=== PATIENT | male | born 1985 | race Hispanic/Latino ===

== ENCOUNTER 2025-02-06 11:35 | Emergency (ER) | payer OTHER ==
[~2025-02-06] VITALS: Ht 177.8 cm; Wt 127.0 kg
[2025-02-06 11:47] VITALS: BP 127/67; PULSE 68; RESP 18; TEMP 97.9
--- NOTE | 2025-02-06 11:49 | ERN ---
ED Note History of Present Illness Stated Complaint: LEFT CALF PAIN Chief Complaint: Lower Extremity Pain/Injury Time Seen by MD: 11:42 Dictation: PATIENT IS A 39-YEAR-OLD MALE STATES HE WAS PUSHING A CAR AN HOUR AGO WHEN HE FELT A POP IN PULL TO THE POSTERIOR LEFT CALF. THE PAIN IS GENERALIZED. DECREASED RANGE OF MOTION SECONDARY TO PAIN. SKIN IS INTACT. HE STATES HE TOOK SOMETHING HIS BROTHER GAVE HIM FOR PAIN. [facility] INTACT. Allergies: Coded Allergies: No Known Drug Allergies (Unverified Allergy, Unknown, 02/06/25) Past Medical History RN Note Reviewed/Agreed w/PFSH: Yes Review of System Dictation CONSTITUTIONAL: NEGATIVE EXCEPT FOR HPI HEAD/FACE: NEGATIVE EXCEPT FOR HPI EENT: NEGATIVE EXCEPT FOR HPI RESPIRATORY: NEGATIVE EXCEPT FOR HPI GASTROINTESTINAL/ABDOMINAL: NEGATIVE EXCEPT FOR HPI GENITOURINARY: NEGATIVE EXCEPT FOR HPI MUSCULOSKELETAL: NEGATIVE EXCEPT FOR HPI POSTERIOR LEFT CALF PAIN INTEGUMENTARY: NEGATIVE EXCEPT FOR HPI NEUROLOGICAL/PSYCH: NEGATIVE EXCEPT FOR HPI HEMATOLOGIC/LYMPHATIC: NEGATIVE EXCEPT FOR HPI ALL SYSTEMS NEGATIVE, EXCEPT NOTED ABOVE. 13 POINT REVIEW OF SYSTEMS ASSESSED AND ALL NEGATIVE EXCEPT FOR ABOVE. Initial Vital Sign VS Vital Signs Date Time Temp Pulse Resp B/P (MAP) Pulse Ox O2 Delivery O2 Flow Rate FiO2 02/06/25 11:47 97.9 68 18 127/67 98 Room Air 0 Physical Exam Dictation VITAL SIGNS REVIEWED GENERAL APPEARANCE: ALERT, ORIENTED X 3, NO OBE MODERATE ACUTE DISTRESS, WELL DEVELOPED, NOURISHED. HEAD AND FACE: NON-TRAUMATIC. EYES: PERRL, PINK CONJUNCTIVAS, EYELID NO TRAUMA, ANTERIOR CHAMBER WITH ARCUS SENILIS. EARS: PINNAS INTACT AND NO SIGNS OF TRAUMA OR ERYTHEMA EAR CANALS CLEAR AND NO DISCHARGE TM NO ERYTHEMA NOSE: NO DISCHARGE, NO BLEEDING. OROPHARYNX: MOUTH NORMAL, TONGUE PINK, PHARYNX CLEAR,NO ERYTHEMA, TONSILS NO EXUDATES, NO ABSCESSES NOTED, MUCOUS MEMBRANE MOIST NECK: SUPPLE, NON-TENDER, NO THYROMEGALY, NO MASSES, NO JVD, NO BRUITS BREAST:DEFERRED CHEST:NO TENDERNESS, NO CREPITUS, NO PARADOXICAL MOVEMENT, NO RETRACTIONS LUNGS:CLEAR, WELL-VENTILATED, SYMMETRIC, NO RALES, NO WHEEZING, NO RHONCHI, NO STRIDOR, GOOD BREATH SOUNDS BILATERALLY HEART: REGULAR RATE, REGULAR RHYTHM, NO MURMUR, NO GALLOPS VASCULAR: NO PERIPHERAL EDEMA, ABDOMEN: SOFT, POSITIVE BOWEL SOUNDS, NONDISTENDED, NO GUARDING, NONTENDER, NO REBOUND, NO MASSES NO HEPATOMEGALY, NO SPLENOMEGALY, NO DORAN'S SIGN, NO HERNIAS. RECTAL: DEFERRED GENITAL: DEFERRED NEUROLOGICAL: NORMAL SPEECH, MOTOR FUNCTION INTACT, SENSORY FUNCTION INTACT MUSCULOSKELETAL: NECK NONTENDER, FULL RANGE OF MOTION, BACK NONTENDER, FULL RANGE OF MOTION, EXTREMITIES: POSTERIOR LEFT CALF PAIN TENDERNESS. DECREASED RANGE OF MOTION SECONDARY TO PAIN [facility] INTACT. SKIN: COLOR PINK, DRY, NO TURGOR, NO RASH, NO LACERATIONS, NO ABRASIONS, NO CONTUSIONS. LYMPHATIC: DEFERRED Results (Laboratory/Radiology) Laboratory/Radiology 1240/LEFT TIBIAL X-RAY NEGATIVE Labs Reviewed?: Yes ED Course ED Course Orders Procedure Category Date Status Time Tibia/Fibula 2vws Lt RAD 02/06/25 Taken 11:46 Crutches W/Training CPOE 02/06/25 Transmitted (Er) 11:46 Acetaminophen With PHA 02/06/25 Complete Codeine (Tylenol-Code 12:00 Current Medications Medications (Trade) Dose Ordered Sig/Debbie Route PRN Reason Start Time Stop Time Status Last Admin Dose Admin Acetaminophen/ Codeine Phosphate (TYLenol-coDEINE TAB) 2 tab ONCE ONCE PO 02/06/25 12:00 02/06/25 12:01 DC 02/06/25 12:32 Vital Signs Date Time Temp Pulse Resp B/P (MAP) Pulse Ox O2 Delivery O2 Flow Rate FiO2 02/06/25 11:47 97.9 68 18 127/67 98 Room Air 0 1240/PATIENT DISCHARGED HOME WITH CRUTCHES AND NO WEIGHT-BEARING LEFT LEG UNTIL CLEARED BY ORTHOPEDIC. REFERRED TO DR. LESA PALMA. [facility] INTACT. Medical Decision Making MDM MEDICAL DISCHARGE MAKING BASED ON EMPIRIC TREATMENT FOR ACUTE LEFT LOWER LEG PAIN X-RAY DEMONSTRATE BONES INTACT TO LOWER EXTREMITY LEFT DIAGNOSIS PERONEAL STRAIN DISCHARGED HOME WITH CRUTCHES AND REFERRAL TO DR. LESA PALMA RICE INSTRUCTIONS GIVEN IBUPROFEN 800 MG Q.6 TO 8 HOURS WITH FOOD FOR PAIN. DX & DISP Disposition: Discharge Departure Impression: Primary Impression: Strain of left peroneal muscle or tendon Condition: Stable Scripts Ibuprofen (Ibuprofen 800 mg Tab) 800 Mg Tab 800 MG PO Q8H PRN for fever or pain, #30 TAB 0 Refills Prov: GIOVANNA CORDERO BRACELET FORMER 02/06/25 Additional Instructions: FOLLOW-UP WITH PRIMARY CARE PROVIDER IN 1 TO 2 DAYS. TAKE MEDICATIONS DIRECTED HERE IN THE EMERGENCY ROOM. OKAY TO CONTINUE HOME MEDICATIONS UNLESS OTHERWISE DISCUSSED DURING YOUR VISIT IN THE EMERGENCY ROOM TODAY. RETURN TO YOUR NEAREST EMERGENCY ROOM IF SYMPTOMS WORSEN OR IF THERE IS NO IMPROVEMENT. CALL 911 IF YOU NEED IMMEDIATE ASSISTANCE. TAKE TYLENOL OR MOTRIN [id number] NEEDED AND IF NO CONTRAINDICATIONS ARE PRESENT. INCREASE ORAL HYDRATION. A WOUND CULTURE OR URINE CULTURE WAS ORDERED HERE IN THE EMERGENCY ROOM DEPARTMENT PLEASE FOLLOW-UP WITH PRIMARY CARE PROVIDER AND ADVISE THEM TO GET REPEAT PORTS FROM OUR FACILITY. IF YOU HAD ANY KAMILLE WRAP/SPLINTS THAT WERE APPLIED HERE, PLEASE DO NOT REMOVE THEM UNTIL YOU SEE YOUR PRIMARY CARE OR SPECIALTY. COOL COMPRESSES TO LEFT CALF THREE TO 4 TIMES A DAY. CRUTCHES AND NO WEIGHT- BEARING UNTIL CLEARED BY ORTHOPEDICS, CALL FOR AN APPOINTMENT TODAY. TAKE IBUPROFEN EVERY 6-8 HOURS WITH FOOD NEEDED FOR PAIN. Referrals: SELF,REFERRAL (PCP) LESA PALMA MD Time of Disposition: 12:42 I have reviewed the case, and I agree with, Diagnosis and Plan GIOVANNA CORDERO Feb 06, 2025 11:49
--- NOTE | 2025-02-06 12:23 | NUR ---
PT JUST NOW PLACED IN MY ED BED HALLWAY C1
--- NOTE | 2025-02-06 12:35 | NUR ---
PENDING RADIOLOGY REPORT
[2025-02-06] MEDS ORDERED: IBUP-2077 PO (12:43)
--- NOTE | 2025-02-06 13:00 | HMCIMG ---
EXAM: CR left Tibia and fibula, 2 views on 4 radiographs.. CLINICAL HISTORY: POSTERIOR LEFT TIBIAL PAIN AFTER PUSHING CAR. PATIENT FELT POP COMPARISON: None provided. FINDINGS: BONES: No acute fracture or aggressive appearing osseous lesion. JOINTS: No dislocation. The joint spaces are normal. SOFT TISSUES: The soft tissues are unremarkable. IMPRESSION: No acute osseous abnormality. /[place]
== END 2025-02-06 13:20 | disposition home or self-care (01) ==
LOC: EDH 11:35
DX: S86.912A Strain of unspecified muscle(s) and tendon(s) at lower leg level, left leg, initial encounter (principal); X58.XXXA Exposure to other specified factors, initial encounter; Y93.89 Activity, other specified; Y92.89 Other specified places as the place of occurrence of the external cause; Y99.8 Other external cause status
CPT/HCPCS: 73590; 99283